=== PATIENT | female | born 1930 | race Caucasian/White ===

== ENCOUNTER → 2017-04-27 | Outpatient (CLI) | payer MEDICARE ==
[~2017-04-27] MED LIST: ASPI-1181 PO; ATOR40TA71 PO; BIOT10005 PO; CHOL200013 PO; FURO20TA4 PO; ISOS20TA7 PO; METO25TA6 PO; OLME40TA18 PO; OMEG-108 PO; POTA8TAB7 PO; SOLI10TA PO; VIT1CAPS47 PO
== END | disposition home or self-care (01) ==
LOC: RAH 11:27
PROVIDERS: ATTEND Internal Medicine Cardiovascular Disease
DX: I10 Essential (primary) hypertension (principal); I87.2 Venous insufficiency (chronic) (peripheral); I70.90 Unspecified atherosclerosis
CPT/HCPCS: 93931

== ENCOUNTER → 2018-01-10 | Outpatient (CLI) | payer MEDICARE | END | disposition home or self-care (01) | LOC: RAH 14:55 | DX: R92.8 Other abnormal and inconclusive findings on diagnostic imaging of breast (principal); Z85.3 Personal history of malignant neoplasm of breast | CPT/HCPCS: 77066 ==

== ENCOUNTER → 2018-06-14 | Outpatient (CLI) | payer MEDICARE | END | disposition home or self-care (01) | LOC: RAH 07:34 | PROVIDERS: ATTEND Internal Medicine | DX: N28.1 Cyst of kidney, acquired (principal); K76.89 Other specified diseases of liver; N20.0 Calculus of kidney; I71.4 Abdominal aortic aneurysm, without rupture; R18.8 Other ascites | CPT/HCPCS: 76700 ==

== ENCOUNTER → 2018-07-14 | Outpatient (CLI) | payer MEDICARE ==
[~2018-07-14] MED LIST changes: +IOHEXOL 350 MG/ML 100ML INFUS..BTL IV ONE
== END | disposition home or self-care (01) ==
LOC: OIH 08:34
PROVIDERS: ATTEND Internal Medicine
DX: N28.1 Cyst of kidney, acquired (principal); K76.89 Other specified diseases of liver; N20.0 Calculus of kidney; K40.90 Unilateral inguinal hernia, without obstruction or gangrene, not specified as recurrent; K57.30 Diverticulosis of large intestine without perforation or abscess without bleeding; M47.816 Spondylosis without myelopathy or radiculopathy, lumbar region
CPT/HCPCS: 74178; Q9967

== ENCOUNTER → 2018-11-22 | Outpatient (CLI) | payer MEDICARE ==
[~2018-11-22] MED LIST changes: -IOHEXOL 350 MG/ML 100ML INFUS..BTL IV ONE
== END | disposition home or self-care (01) ==
LOC: RAH 07:22
PROVIDERS: ATTEND Internal Medicine
DX: K76.0 Fatty (change of) liver, not elsewhere classified (principal); N28.1 Cyst of kidney, acquired; I71.4 Abdominal aortic aneurysm, without rupture; K76.89 Other specified diseases of liver
CPT/HCPCS: 76700

== ENCOUNTER → 2019-01-05 | Outpatient (CLI) | payer MEDICARE ==
[~2019-01-05] MED LIST changes: +IOHEXOL 350 MG/ML 100ML INFUS..BTL IV ONE; +IOHEXOL-350 50ML VIAL IV ONE
== END | disposition home or self-care (01) ==
LOC: RAH 07:40
PROVIDERS: ATTEND Internal Medicine Cardiovascular Disease
DX: I71.4 Abdominal aortic aneurysm, without rupture (principal); N28.1 Cyst of kidney, acquired; Z95.828 Presence of other vascular implants and grafts
CPT/HCPCS: 75635; Q9967 ×2

== ENCOUNTER → 2019-06-20 | Outpatient (CLI) | payer MEDICARE ==
[~2019-06-20] MED LIST changes: -ASPI-1181 PO; +ASPI-1443 PO; -IOHEXOL 350 MG/ML 100ML INFUS..BTL IV ONE; -IOHEXOL-350 50ML VIAL IV ONE
== END | disposition home or self-care (01) ==
LOC: SHCH 07:39
PROVIDERS: ATTEND Internal Medicine Cardiovascular Disease
DX: I71.4 Abdominal aortic aneurysm, without rupture (principal)
CPT/HCPCS: 93978